=== PATIENT | female | born 1975 | race Two or more races ===

== ENCOUNTER 2024-03-01 15:04 | Emergency (ER) | payer MEDICAID, OTHER ==
[~2024-03-01] VITALS: Ht 165.1 cm; Wt 61.9 kg
[2024-03-01] MEDS ORDERED: CYCL-839 PO (15:49)
--- NOTE | 2024-03-01 15:49 | ED.PDOC ---
History of Present Illness HPI Comments This is a 48-year-old female who works at [employer] apparently last night she was baking and something fell she tried to grab it and felt a tweak in her back. Now she states she can walk she has no incontinence but when she does certain movements she feels spasm.. No urinary tract symptoms. Chief Complaint: Back Pain Time Seen by MD: 15:42 Primary Care Provider: Puma Guillen Notes: Nurses Notes, Medications, Allergies Allergies: Coded Allergies: NO KNOWN ALLERGIES (Unverified , 03/01/24) Information Source: Patient Mode of Arrival: Ambulatory Past Medical History PAST MEDICAL HISTORY: HTN Surgical History: , Hernia Repair Family History Family History: Reviewed,noncontributory to illness Social History Smoker: Non-Smoker Alcohol: Occasionally Drugs: Denies Drug Use Lives In: Home Musculoskeletal: reports: back pain, muscle pain, muscle stiffness Physical Exam General Appearance: No Apparent Distress, None HEENT: Normal ENT Inspection, PERRL/EOMI, Pharynx Normal, TMs Normal Neck: Non-Tender, Normal, Normal Inspection Respiratory: Lungs Clear, Normal Breath Sounds Cardiovascular: Regular Rate/Rhythm Breast Exam: Deferred Gastrointestinal: Non Tender, Normal Bowel Sounds, Soft Genitalia: Deferred Pelvic: Deferred Rectal: Deferred Extremities: Normal inspection, Normal range of motion, Other (Pain right side midthoracic region, tight with range of motion) Neurologic: Alert, No Motor Deficits, Normal Mood Cerebellar Function: Normal Reflexes: NOT DONE Skin: Dry, Normal Color, Warm Lymphatic: NOT DONE Was a procedure done? Was a procedure done?: No Differential Dx Considerations may include: UTI versus fracture X-Ray, Labs, Meds, VS Vital Signs Date Time Temp Pulse Resp B/P (MAP) Pulse Ox O2 Delivery O2 Flow Rate FiO2 03/01/24 15:19 98.1 88 17 108/66 (80) 96 X-Ray, Labs, Meds, VS Comment Patient seen and examined by me. Patient most likely has a thoracic strain from lifting. Patient can not take anti-inflammatories although she can take a leave. Advil upsets her stomach. Patient will be given a prescription for cyclobenzaprine for muscle relaxer. She will also be given a couple of days off of work instructed on heat alternating with ice and no lifting for a couple of days.. Time of 1ST Reevaluation: 15:46 Reevaluation 1ST: Unchanged Patient Education/Counseling: Diagnosis, Treatment, Prognosis, Need For Follow Up Family Education/Counseling: Other Departure 1 Departure Time of Disposition: 15:49 Impression: Primary Impression: Musculoskeletal pain Additional Impression: Thoracic myofascial strain Disposition: 01 HOME / SELF CARE / HOMELESS Condition: Good Additional Instructions: Alternate heat and ice for the1st 48 hours as much as you can tolerate A hot bath or Jacuzzi will also help No lifting or twisting at all Continue your Naprosyn at home Take the muscle relaxer at night to help you sleep e-Prescriptions Cyclobenzaprine Hcl (Cyclobenzaprine Hcl) 10 Mg Tab 10 MG PO TIDPRN PRN for 7 Days, #21 TAB Prov: KELSIE RODARTE 03/01/24 Discharged With: Self Critical Care Note Critical Care Time?: No Stability Stability form required: KELSIE Philippe Mar 01, 2024 15:49
[2024-03-01 15:50] VITALS: BP 108/66; PULSE 88; RESP 17; TEMP 98.1; O2SAT 96
== END 2024-03-01 15:49 | disposition home or self-care (01) ==
LOC: ER 15:04
DX: S29.012A Strain of muscle and tendon of back wall of thorax, initial encounter (principal); I10 Essential (primary) hypertension; M79.18 Myalgia, other site; Z98.890 Other specified postprocedural states; W01.0XXA Fall on same level from slipping, tripping and stumbling without subsequent striking against object, initial encounter; Y93.89 Activity, other specified; Y92.89 Other specified places as the place of occurrence of the external cause; Y99.8 Other external cause status